=== PATIENT | female | born 1965 | race Caucasian/White ===

== ENCOUNTER 2017-04-21 10:40 | Day surgery (SDC) | payer OTHER ==
[~2017-04-21] VITALS: Ht 152.4 cm; Wt 65.8 kg
[~2017-04-21 10:40] MED LIST: SYNTHROID125 MCG PO; TOPROL XL100 MG PO
[2017-04-21 11:05] VITALS: BP 151/73
[2017-04-21 14:16] VITALS: BP 153/69
== END 2017-04-21 14:49 | disposition home or self-care (01) ==
LOC: SDC 10:40
DX: L72.0 Epidermal cyst (principal); I10 Essential (primary) hypertension; E03.9 Hypothyroidism, unspecified; Z86.73 Personal history of transient ischemic attack (TIA), and cerebral infarction without residual deficits; Z82.3 Family history of stroke; Z82.49 Family history of ischemic heart disease and other diseases of the circulatory system
CPT/HCPCS: 88304; 93005; J0690; J1170; J2250; J2405; J3010

== ENCOUNTER 2018-06-05 10:05 | Inpatient (IN) | payer BC ==
[~2018-06-05] VITALS: Ht 152.4 cm; Wt 61.8 kg
[2018-06-05 10:21] LABS: BASOPHIL (%) 0.9 % (0-1); BASOPHIL COUNT 0.1 K/uL (0-0.1); EOSINOPHIL (%) 4.1 % (0-5); EOSINOPHIL COUNT 0.3 K/uL (0-0.3); HEMATOCRIT 37.8 % (36.0-46.0); HEMOGLOBIN 12.7 G/DL (11.9-15.5); IMMATURE GRANULOCYTE (%) 0.3 % (0.0-0.7); LYMPHOCYTE (%) 37.8 % (15-42); MCH 31.1 PG (29.0-34.0); MCHC 33.6 G/DL (30.0-36.0); MCV 92.6 FL (83-99); MONOCYTE (%) 7.7 % (3-12); MONOCYTE COUNT 0.6 K/uL (0-0.8); NEUTROPHIL (%) 49.2 % (45-76); NEUTROPHIL COUNT 3.9 K/uL (1.8-6.4); PLATELET COUNT 250 K/uL (156-360); RBC DIS.WIDTH-CV 13.5 % (11.8-14.6); RBC DIS.WIDTH-SD 45.6 % (39-53); RED BLOOD COUNT 4.08 M/uL (3.80-5.20)
[2018-06-05 10:30] LABS: PTT 27.3 SEC (25-37)
[2018-06-05 10:36] LABS: AMYLASE 69 IU/L (1-118); CHLORIDE 103 mEq/L (99-109); POTASSIUM 3.9 mEq/L (3.7-5.4); SODIUM 139 mEq/L (136-147)
[2018-06-05 10:38] LABS: GLUCOSE 81 mg/dL (70-99)
[2018-06-05 10:41] LABS: SERUM ETHYL ALCOHOL < 10 mg/dL
[2018-06-05 10:42] LABS: CREATININE 0.7 mg/dL (0.6-1.3); GFR ESTIMATE (CALCULATED) > 59 mL/min/
[2018-06-05 10:43] LABS: UREA NITROGEN (BUN) 9 mg/dL (9-23)
[2018-06-05 10:45] LABS: LIPASE 20 U/L (1.0-51.0)
[2018-06-05 10:46] LABS: TROP-I INTERPRETATION NEGATIVE; TROPONIN-I < 0.01 ng/mL (0.0-0.30)
[2018-06-05 10:50] LABS: QUANTITATIVE HCG < 4.0 MIU/ML
[2018-06-05] MEDS ORDERED: LOSARTAN-HCTZ1 EACH PO (13:22)
[2018-06-05] MEDS ORDERED: LEVOTHYROXINE112 MCG PO (13:22)
[2018-06-05] MEDS ORDERED: ZOLPIDEM TARTRA10 MG PO (13:22)
[2018-06-05] MEDS ORDERED: METOPROLOL SUC100 MG PO (13:22)
[2018-06-05] MEDS ORDERED: LO-DOSE ASPIRIN81 M1 PO (13:23)
[2018-06-05 13:41] LABS: APPEARANCE CLEAR ((CLEAR)); BILIRUBIN NEGATIVE; BLOOD NEGATIVE; COLOR STRAW ((YELLOW)); GLUCOSE (STRIP) NEGATIVE; KETONES NEGATIVE; LEUKOCYTES MODERATE; NITRITE NEGATIVE; PROTEIN (STRIP) NEGATIVE; SPECIFIC GRAVITY 1.011 (1.000-1.030); UROBILINOGEN 0.2 MG/DL (0.2-1.0)
[2018-06-05 13:51] LABS: BACTERIA NONE SEEN /HPF; EPITHELIAL CELLS RARE /HPF; MUCUS NONE SEEN /LPF; RED BLOOD CELLS 0-5 /HPF (0-5); UCUL ADDED? YES
[2018-06-05 14:17] VITALS: BP 113/58
[2018-06-05 14:19] LABS: AMPHETAMINE NEGATIVE (500 ng/mL); BARBITURATES NEGATIVE (200 ng/mL); BENZODIAZEPINES PRESUMPTIVE POSITIVE (150 ng/mL); BUPRENORPHINE NEGATIVE (10 ng/mL); COCAINE NEGATIVE (150 ng/mL); METHADONE NEGATIVE (200 ng/mL); METHAMPHETAMINE NEGATIVE (500 ng/mL); OPIATES (MORPHINE) NEGATIVE (100 ng/mL); OXYCODONE NEGATIVE (100 ng/mL); PHENCYCLIDINE NEGATIVE (25 ng/mL); PROPOXYPHENE NEGATIVE (300 ng/mL); THC CANNABINOIDS NEGATIVE (50 ng/mL); TRICYCLIC ANTIDEPRESSANTS PRESUMPTIVE POSITIVE (300 ng/mL)
[2018-06-05 14:52] LABS: BENZODIAZEPINES, URINE SCREEN POSITIVE (200 ng/mL)
[2018-06-05 15:05] LABS: HDL CHOLESTEROL 46 MG/DL (Desirable>=50); LDL CHOLESTEROL 103 mg/dL (Desirable<100); NON-HDL CHOLESTEROL 120 mg/dL (Desirable<160); TOTAL CHOLESTEROL 166 mg/dL (Desirable<200); TRIGLYCERIDES 87 MG/DL (Normal: <150)
[2018-06-05 20:22] VITALS: BP 111/59
[2018-06-05 20:43] VITALS: BP 111/59
[2018-06-06 00:16] VITALS: BP 102/55
[2018-06-06 03:58] VITALS: BP 98/57
[2018-06-06 07:30] VITALS: BP 122/63
[2018-06-06] MEDS ORDERED: ATORVASTATIN CA40 MG PO (11:05)
[2018-06-06] MEDS ORDERED: CLOPIDOGREL75 MG PO (11:05)
[2018-06-06 12:57] VITALS: BP 136/79
[2018-06-06 15:58] VITALS: BP 149/74
[2018-06-06 20:16] VITALS: BP 129/86
[2018-06-07 00:12] VITALS: BP 140/79
[2018-06-07 04:10] VITALS: BP 124/67
[2018-06-07 07:35] VITALS: BP 138/78
[2018-06-07 09:51] LABS: HEMOGLOBIN A1c (GLYCOHEMOGLOB) 5.3 % (Below 5.7)
[2018-06-07 11:08] VITALS: BP 164/95
== END 2018-06-07 13:46 | disposition home health service (06) | DRG 65 ==
LOC: EME 10:05 → EDOF 12:58 → ENRESERV 13:00 → EDOF 13:42 → 4SOUTH 13:42 → EDOF 13:42 → ENRESERV 13:43 → 4SOUTH 14:06
PROVIDERS: Emergency Medicine; Internal Medicine
DX: I63.9 Cerebral infarction, unspecified (principal); G81.94 Hemiplegia, unspecified affecting left nondominant side; R29.810 Facial weakness; R27.0 Ataxia, unspecified; R47.01 Aphasia; R20.0 Anesthesia of skin; H53.8 Other visual disturbances; I10 Essential (primary) hypertension; R29.712 NIHSS score 12; E03.9 Hypothyroidism, unspecified; E78.5 Hyperlipidemia, unspecified; Z86.73 Personal history of transient ischemic attack (TIA), and cerebral infarction without residual deficits; Z79.82 Long term (current) use of aspirin; Z98.84 Bariatric surgery status
CPT/HCPCS: 70450; 70496; 70498; 70551; 80048; 80061; 81003; 82150; 83036; 83690; 84484; 84702; 84999; 85025; 85610; 85651; 85730; 86850; 86900; 86901; 87077; 87086; 87186; 93306; 99281; 99285; G0480; J1885; J2060